=== PATIENT | female | born 1975 | race Caucasian/White ===

== ENCOUNTER 2016-06-28 00:03 | Emergency (ER) | payer BC, SELFPAY ==
[2016-06-28] MEDS ORDERED: Ketorolac Tromethamine 60 MG/2 ML VIAL ONE (00:18)
[2016-06-28 00:24] LABS: Bilirubin Negative (Negative); Blood, Urine Small (Negative); Clarity Clear (Clear); Glucose, Urine (Dipstick) Negative (Negative); Leukocyte Trace (Negative); Nitrite Negative (Negative); Protein, Urine (Dipstick) Negative (Neg-Trace); Urobilinogen 0.2 mg/dL (0.2-1.0); pH, Urine 5.5 (5.0-9.0)
[2016-06-28 00:26] LABS: Pregnancy Test - Urine (BHCG) NEGATIVE (NEGATIVE)
[2016-06-28 00:27] LABS: Pregu Control Background? CLEAR/WHITE (CLR/WHITE); Pregu Control Bar Appear? YES (CONTROL BAR)
[2016-06-28 00:29] LABS: Bacteria/HPF 2+ HPF (None Seen); Squamous Epithelial 0-3 HPF (0-3)
[2016-06-28] MEDS ORDERED: Sulfameth/Trimethoprim DS 800-160mg TAB ONE (01:02)
--- NOTE | 2016-06-28 08:29 | CT ---
PRELIMINARY REPORT/[facility]/EMERGENCY AFTER HOURS PROCEDURE: EXAM: CT Abdomen and Pelvis Without Intravenous Contrast CLINICAL HISTORY: 41 years old, female; Pain; Abdominal pain; Flank; Right; Prior surgery; Surgery date: 6+ months; [facility] celio type: Surgical HX includes: Hysterectomy; Patient HX: Patient presents to the er for right fla nk pain; Pain since yesterday, patient says she picks up heavy objects at work. Pain worse with movement. TECHNIQUE: Axial computed tomography images of the abdomen and pelvis without intravenous contrast. This CT exa m was performed using one or more of the following dose reduction techniques: automated exposure con trol, adjustment of the mA and/or kV according to patient size, and/or use of iterative reconstruction technique. Coronal reformatted images were created and reviewed. COMPARISON: No relevant prior studies available. FINDINGS: Lower thorax: No acute findings. ABDOMEN: Liver: Unremarkable. Gallbladder and bile ducts: Unremarkable. No calcified stones. No ductal dilation. Pancreas: Unremarkable. No ductal dilation. Spleen: Unremarkable. No splenomegaly. Adrenals: Unremarkable. No mass. Kidneys and ureters: Punctate renal stones are seen bilaterally. Mild right periureteral fat strandi ng is seen in addition to minimal hydronephrosis. Stomach and bowel: Stool throughout the colon. No obstruction. No mucosal thickening. Appendix: No findings to suggest acute appendicitis. PELVIS: Bladder: Unremarkable. No stones. Reproductive: Unremarkable as visualized. ABDOMEN and PELVIS: Intraperitoneal space: Unremarkable. No free air. No significant fluid collection. Bones/joints: No acute fracture. No dislocation. Soft tissues: Unremarkable. Vasculature: Unremarkable. No abdominal aortic aneurysm. Lymph nodes: Unremarkable. No enlarged lymph nodes. IMPRESSION: 1. Nonobstructive bilateral renal stones. 2. Right-sided periureteral fat stranding with minimal hydronephrosis suggests recently passed stone . Thank you for allowing us to participate in the care of your patient. Dictated and Authenticated by: Nina Cuba MD 06/28/2016 1:19 AM Central Time ([place] \T\ [place]) FINAL REPORT CT ABDOMEN AND PELVIS WITHOUT CONTRAST: Date: 06/28/[address] of the abdomen and pelvis was performed for evaluation of flank pain. Axial slices were ac quired without oral or IV contrast. Coronal reconstructions were then done. FINDINGS: The lung bases are clear. The liver, spleen, pancreas, adrenal glands, gallbladder, and abdominal ao rta were unremarkable within the limitations of a noncontrast study. Punctate nonobstructing renal stones are seen bilaterally. The larger ones are in the right kidney. There is a very minimal degree of right hydronephrosis. A very slight amount of periureteral strandi ng is seen around the proximal right ureter. While no calculus was seen in the right ureter, these f indings do raise the question if there might have been one recently passed. The bowel shows no sign of obstruction or inflammatory change around it. There is a considerable ivan unt of fecal material in the right colon. There are some scattered nonspecific nodes in the mesenter y, but not enough to raise great concern. The appendix appears normal. A few small diverticula are s een in the left colon without signs of diverticulitis. No free air or free fluid was seen. CT of the pelvis shows a 4.0 cm ovoid hypodense area in the right adnexa. I do not know if this is t he ovary, or perhaps an ovarian cyst. An elective follow-up ultrasound would be prudent. No free flu id or inflammatory change was seen in the pelvis. On the top slices of this study, one sees two separate subcentimeter densities in the lower outer qu adrant of the right breast. I cannot tell if these are actual masses or some residual breast tissue in the parenchyma. It might be worth elective follow-up to be sure there is no pathology here. IMPRESSION: 1. Bilateral nonobstructing renal calculi. 2. Very slight right hydronephrosis with a little bit of periureteral stranding around the proximal right ureter. The findings raised a question of a recently passed calculus, but no obstructing calc ulus was appreciated at this time. 3. 4.0 cm ovoid density in the right adnexal region. Ovary versus cyst versus both. Elective follow -up ultrasound recommended. 4. Two separate subcentimeter soft tissue densities in the lower outer quadrant of the right breast of indeterminate significance. Follow-up suggested. Findings in substantial agreement with preliminary reading by vRsabrina. Further follow-up needed as list ed above. CODE T. POS: HOME
== END 2016-06-28 03:04 | disposition home or self-care (01) ==
LOC: BURERS 00:03
DX: N13.2 Hydronephrosis with renal and ureteral calculous obstruction (principal); F41.9 Anxiety disorder, unspecified; F32.9 Major depressive disorder, single episode, unspecified
CPT/HCPCS: 74176; 81003; 81015; 81025; 96372; J1885